=== PATIENT | male | born 1995 | race African-American/Black ===

== ENCOUNTER 2024-11-01 12:22 | Emergency (ER) | payer MEDICAID ==
[~2024-11-01] VITALS: Ht 172.7 cm; Wt 77.3 kg
[2024-11-01 12:26] VITALS: BP 110/64; PULSE 70; RESP 18; TEMP 98; O2SAT 99
[2024-11-01] MEDS ORDERED: PSEU-191 PO (15:01)
[2024-11-01] MEDS ORDERED: AZIT250T9 PO (15:01)
[2024-11-01] MEDS ORDERED: ACET-2080 PO (15:01)
== END 2024-11-01 15:25 | disposition home or self-care (01) ==
LOC: EMS 12:27
DX: S02.32XA Fracture of orbital floor, left side, initial encounter for closed fracture (principal); S20.211A Contusion of right front wall of thorax, initial encounter; S05.12XA Contusion of eyeball and orbital tissues, left eye, initial encounter; H11.32 Conjunctival hemorrhage, left eye; Z88.1 Allergy status to other antibiotic agents; Y04.8XXA Assault by other bodily force, initial encounter; Y93.89 Activity, other specified; Y92.89 Other specified places as the place of occurrence of the external cause; Y99.8 Other external cause status
CPT/HCPCS: 70486; 71045; 71100; 99284